=== PATIENT | male | born 1980 | race Caucasian/White ===

== ENCOUNTER 2022-06-12 08:00 | Inpatient (IN) | payer SELFPAY ==
[2022-06-12] MEDS ORDERED: LORazepam 2 MG/ML INJ IV STA ×3 (08:15→10:43)
[2022-06-12] MEDS ORDERED: SODIUM CHLORIDE 0.9% 1,000 ML IV STA (08:15)
--- NOTE | 2022-06-12 08:15 | ED ---
General Adult HPI - General Chief complaint: Altered Mental Status Stated complaint: AMS Time Seen by Provider: 06/12/22 08:02 Source: EMS Mode of arrival: EMS Limitations: altered mental status - History of Present Illness Initial comments: Dictation was produced using [employer] dictation software. please excuse any grammatical, word or spelling errors. Chief Complaint: 42-year-old male brought in to the emergency department for altered mental status History of Present Illness: Is a 42-year-old male history of resident was obtained from EMS. Patient is a poor historian. Apparently patient was found altered in a vehicle in a neighboring city. He was parked at a gas station when bystander noticed use in the vehicle not really responding. Police was called and forced the vehicle open. EMS was called after patient was found to be altered. EMS reports that there were several illicit drugs/substances found in the vehicle. Patient did not admit to using any of these. Patient denies any comorbidities at this time however he is a poor historian. Unable to obtain ROS secondary to mental status PHYSICAL EXAM: General Impression: Alert and oriented x3, not in acute distress, agitated HEENT: Normocephalic atraumatic, extra-ocular movements intact, pupils equal and reactive to light bilaterally, mucous membranes moist, poor dentition Cardiovascular: Heart regular rate and rhythm Chest: Able to complete full sentences, no retractions, no tachypnea Abdomen: abdomen soft, non-tender, non-distended, no organomegaly Musculoskeletal: Pulses present and equal in all extremities, no peripheral edema Motor: no focal deficits noted Neurological: CN II-XII grossly intact, no focal motor or sensory deficits noted Skin: Intact with no visualized rashes ED course: 42-year-old male presents emergency department for sympathomimetic toxicity. Signs upon arrival shows heart rate of 135. Rest vital signs within acceptable limits. Nursing notes and chart review was performed My EKG interpretation: Ventricular rate 125, sinus tachycardia,. 122, QRS 64, QTC 424. No W[place] prolongation, no QTC prolongation, no ST or T-wave changes noted. . Overall, this EKG is unremarkable Laboratory evaluation obtained. CBC shows mild leukocytosis of 14.7. Hypernatremia and suitable 140. Positive gap acidosis. Elevated renal markers with a creatinine of 2.74 and BUN of 32. Osmolar gap is normal. No concerns of toxic alcohol ingestion. Lactic acidosis 7.9. Creatinine is 1242. These are all likely manifestations of sympathomimetic toxicity. Computed tomography scan of brain was obtained. It was independently interpreted by myself. Radiology reviews suggest that there is a focal hyperdensity distribution of the anterior cerebral artery. Patient has renal dysfunction. Risks outweigh the benefits for contrast administration. Radiologist recommends MRA instead. Patient given multiple doses of benzodiazepines. He'll be admitted for further care. Case discussed with Dr. Chandra of [facility] emergency department physician group was willing to accept patients care. Was pt. sent in by a medical professional or institution? @No Did you speak to anyone other than the patient for history? @EMS Did you review nursing and triage notes? @yes, agreed Were old charts reviewed? @None Differential Diagnosis? @ MDM Differential Altered Mental Status: Hypoglycemia, DKA, hypercapnia, ETOH, overdose, CO poisoning, trauma, myxedema coma, HTN encephalopathy, infection, encephalitis, psychosis, intercranial hemorrhage, hepatic encephalopathy, meningitis, CVA this is not meant to be an all-inclusive list EKG interpreted by me (3pts min.)? @Yes, see interpretation above X-rays interpreted by me (1pt min.)? @ [none] CT interpreted by me (1pt min.)? @Yes, see interpretation above U/S interpreted by me (1pt. min.)? @ [none] What testing was considered but not performed? (CT, X-rays, U/S, labs)? Why? @CT with contrast was considered however patient has poor GFR that with the benefits What meds were considered but not given? Why? @Haldol, ketamine was considered for sedation however Ativan better choice Did you discuss the management of the patient with other professionals? @Case discussed with Dr. La of [facility] emergency department physician group Did you reconcile home meds? @ [none] Was smoking cessation discussed for >3mins.? @ [none] Was critical care preformed (if so, how long)? @ [none] Were there social determinants of health that impacted care today? How? (Homelessness, low income, unemployed, alcoholism, drug addiction, transportation, low edu. Level, literacy, decrease access to med. care, snf, rehab)? @Patient disheveled and likely abuses illicit drugs on a regular basis making disposition difficult Was there de-escalation of care discussed even if they declined? (Discuss DNR or withdrawal of care, Hospice)? @Not applicable What co-morbidities impacted this encounter? (DM, HTN, Smoking, COPD, CAD, Cancer, CVA, Hep., AIDS, mental health diagnosis, sleep apnea, morbid obesity)? @Unable to identify morbidities given patient's mental status Was patient admitted / discharged? @Admitted Undiagnosed new problem with uncertain prognosis? @Yes Drug Therapy requiring intensive monitoring for toxicity (Heparin, Nitro, Insulin, Cardizem)? @Yes, Ativan Were any procedures done? @ [none] Diagnosis/symptom? @Sympathomimetic toxicity with associated rhabdomyolysis, acidosis Acute, or Chronic, or Acute on Chronic? @Acute Uncomplicated (without systemic symptoms) or Complicated (systemic symptoms)? @Complicated Side effects of treatment? @ [none] Exacerbation, Progression, or Severe Exacerbation] @ [no] Poses a threat to life or bodily function? @Yes, renal and cardiac threat - Related Data Home Medications Medication Instructions Recorded Confirmed Unable To Assess [Unable to Assess] 06/12/22 06/12/22 Allergies Allergy/AdvReac Type Severity Reaction Status Date / Time Unable to Assess Allergy Verified 06/12/22 08:09 Review of Systems ROS Statement: Those systems with pertinent positive or pertinent negative responses have been documented in the HPI. ROS Other: All systems not noted in ROS Statement are negative. Past Medical History Past Medical History: Unable to Obtain History of Any Multi-Drug Resistant Organisms: Unobtainable Past Surgical History: Unable to Obtain Past Psychological History: Unable to Obtain Smoking Status: Unknown if ever smoked Past Alcohol Use History: Unable to Obtain Past Drug Use History: Unable to Obtain General Exam Limitations: altered mental status Course Vital Signs 06/12/22 06/12/22 08:02 12:16 Temperature 98.2 F Pulse Rate 135 H 108 H Respiratory 22 15 Rate Blood Pressure 129/85 106/78 O2 Sat by Pulse 97 99 Oximetry Medical Decision Making - Lab Data Result diagrams: 06/12/22 08:35 06/12/22 08:35 Lab Results 06/12/22 06/12/22 06/12/22 Range/Units 08:35 08:35 08:35 WBC 14.7 H (3.8-10.6) k/uL RBC 5.04 (4.30-5.90) m/uL Hgb 16.8 (13.0-17.5) gm/dL Hct 48.1 (39.0-53.0) % MCV 95.4 (80.0-100.0) fL MCH 33.3 (25.0-35.0) pg MCHC 34.9 (31.0-37.0) g/dL RDW 12.9 (11.5-15.5) % Plt Count 269 (150-450) k/uL MPV 8.1 Neutrophils % 91 % Lymphocytes % 4 % Monocytes % 5 % Eosinophils % 1 % Basophils % 0 % Neutrophils # 13.3 H (1.3-7.7) k/uL Lymphocytes # 0.6 L (1.0-4.8) k/uL Monocytes # 0.7 (0-1.0) k/uL Eosinophils # 0.1 (0-0.7) k/uL Basophils # 0.0 (0-0.2) k/uL Sodium 148 H (137-145) mmol/L Potassium 4.7 (3.5-5.1) mmol/L Chloride 110 H (98-107) mmol/L Carbon Dioxide 16 L (22-30) mmol/L Anion Gap 22 mmol/L BUN 32 H (9-20) mg/dL Creatinine 2.74 H (0.66-1.25) mg/dL Est GFR (CKD-EPI)AfAm 31 (>60 ml/min/1.73 sqM) Est GFR (CKD-EPI)NonAf 27 (>60 ml/min/1.73 sqM) Glucose 233 H (74-99) mg/dL Osmolality (280-301) mosm/kg Lactic Ac Sepsis Rflx Plasma Lactic Acid Sang 7.9 H* (0.7-2.0) mmol/L Calcium 10.6 H (8.4-10.2) mg/dL Total Bilirubin 0.9 (0.2-1.3) mg/dL AST 60 H (17-59) U/L ALT 42 (4-49) U/L Alkaline Phosphatase 88 (38-126) U/L Creatine Kinase (55-170) U/L Total Protein 8.8 H (6.3-8.2) g/dL Albumin 5.2 H (3.5-5.0) g/dL 06/12/22 06/12/22 Range/Units 08:35 09:16 WBC (3.8-10.6) k/uL RBC (4.30-5.90) m/uL Hgb (13.0-17.5) gm/dL Hct (39.0-53.0) % MCV (80.0-100.0) fL MCH (25.0-35.0) pg MCHC (31.0-37.0) g/dL RDW (11.5-15.5) % Plt Count (150-450) k/uL MPV Neutrophils % % Lymphocytes % % Monocytes % % Eosinophils % % Basophils % % Neutrophils # (1.3-7.7) k/uL Lymphocytes # (1.0-4.8) k/uL Monocytes # (0-1.0) k/uL Eosinophils # (0-0.7) k/uL Basophils # (0-0.2) k/uL Sodium (137-145) mmol/L Potassium (3.5-5.1) mmol/L Chloride (98-107) mmol/L Carbon Dioxide (22-30) mmol/L Anion Gap mmol/L BUN (9-20) mg/dL Creatinine (0.66-1.25) mg/dL Est GFR (CKD-EPI)AfAm (>60 ml/min/1.73 sqM) Est GFR (CKD-EPI)NonAf (>60 ml/min/1.73 sqM) Glucose (74-99) mg/dL Osmolality 326 H* (280-301) mosm/kg Lactic Ac Sepsis Rflx Y Plasma Lactic Acid Sang (0.7-2.0) mmol/L Calcium (8.4-10.2) mg/dL Total Bilirubin (0.2-1.3) mg/dL AST (17-59) U/L ALT (4-49) U/L Alkaline Phosphatase (38-126) U/L Creatine Kinase 1242 H* (55-170) U/L Total Protein (6.3-8.2) g/dL Albumin (3.5-5.0) g/dL Critical Care Time Critical Care Time: Yes Total Critical Care Time: 77 Disposition Clinical Impression: BRIDGET (acute kidney injury), Rhabdomyolysis, Adv eff sympathomimetics Disposition: ADMITTED IP TO THIS [facility] Condition: Serious Referrals: None,Stated [Primary Care Provider] - 1-2 days Decision Time: 12:43
[2022-06-12 08:55] LABS: Basophils % (A) 0 %; Eosinophils # (A) 0.1 k/uL (0-0.7); Eosinophils % (A) 1 %; HCT 48.1 % (39.0-53.0); HGB 16.8 gm/dL (13.0-17.5); Lymphocytes # (A) 0.6 k/uL (1.0-4.8); Lymphocytes % (A) 4 %; MCH 33.3 pg (25.0-35.0); MCHC 34.9 g/dL (31.0-37.0); MCV 95.4 fL (80.0-100.0); Mean Platelet Volume 8.1; Monocytes # (A) 0.7 k/uL (0-1.0); Monocytes % (A) 5 %; Neutrophils # (A) 13.3 k/uL (1.3-7.7); Neutrophils % (A) 91 %; Platelet Count 269 k/uL (150-450); RBC 5.04 m/uL (4.30-5.90); RDW 12.9 % (11.5-15.5); WBC 14.7 k/uL (3.8-10.6)
[2022-06-12 09:06] LABS: Albumin 5.2 g/dL (3.5-5.0); Calcium 10.6 mg/dL (8.4-10.2); Potassium 4.7 mmol/L (3.5-5.1); Total Bilirubin 0.9 mg/dL (0.2-1.3); Total Protein 8.8 g/dL (6.3-8.2)
[2022-06-12 10:57] LABS: Creatine Kinase 1242 U/L (55-170)
--- NOTE | 2022-06-12 11:57 | CT ---
EXAMINATION TYPE: CT brain wo con DATE OF EXAM: 06/12/2022 COMPARISON: None HISTORY: Altered mental status. CT DLP: 1188.4 mGycm. Automated Exposure Control for Dose Reduction was Utilized. TECHNIQUE: CT scan of the head is performed without contrast. FINDINGS: There is no acute intracranial hemorrhage, mass effect, or midline shift identified. The ventricles and sulci are within normal limits in size. The globes are intact and the visualized sin uses are clear. Small focal hyperdensity seen on axial image 27. Recommend CTA nez perce of [place] to as sess tiny hyperdensity at possibility of thromboembolic disease within the right anterior cerebral ar amadeo. IMPRESSION: 1. No acute intracranial hemorrhage. 2. Recommend CTA nez perce of [place] process. Focal hyperdensity distribution of the anterior cerebral a rtery
[2022-06-12] MEDS ORDERED: NALOXONE 0.4 MG/ML 1 ML VIAL IV PRN ×2 (13:32→13:38)
--- NOTE | 2022-06-12 13:38 | P.HPIM ---
History of Present Illness H&P Date: 06/12/22 Chief Complaint: found down 42-year-old male brought in to the emergency department for altered mental status, he was found by a bystander in his car, out of it. Police was called and forced the vehicle open. When EMS arrived he was not making sense of what he was saying. EMS reports that there were several illicit drugs/substances found in the vehicle including meth and possibly fentanyl. According to the ER nurse he was not cooperative with his care in the ER. When I evaluated the patient was very out of it. He was just given some sedation with Ativan by the ER. He is currently sleeping and not able to provide any history. Evaluation in the emergency department revealed tachycardia with heart rate in the 130s, EKG showed sinus tachycardia. Labs showed sodium 148, potassium 4.7, prednisone 10, bicarb 16, BUN 32, creatinine 2.74, glucose 233, white count 14.7 . Osmolality 326. Osmolality gap 6, lactic acid 7.9, Calcium 10.6, Bilirubin 0.9, AST 60, ALT 42. Total CK 1242, head CT showed no acute intracranial abnormality but there was some focal hypodensity in the anterior communicating artery area, recommending CTA... Review of Systems Unable to obtain ROS secondary to mental status Past Medical History Past Medical History: Unable to Obtain History of Any Multi-Drug Resistant Organisms: Unobtainable Past Surgical History: Unable to Obtain Past Psychological History: Unable to Obtain Smoking Status: Unknown if ever smoked Past Alcohol Use History: Unable to Obtain Past Drug Use History: Unable to Obtain Medications and Allergies Home Medications Medication Instructions Recorded Confirmed Type Unable To Assess [Unable to Assess] 06/12/22 06/12/22 History Allergies Allergy/AdvReac Type Severity Reaction Status Date / Time Unable to Assess Allergy Verified 06/12/22 08:09 Physical Exam Vitals: Vital Signs Temp Pulse Resp BP Pulse Ox 06/12/22 12:16 108 H 15 106/78 99 06/12/22 08:02 98.2 F 135 H 22 129/85 97 Intake and Output 06/11/22 06/12/22 06/12/22 22:59 06:59 14:59 Other: Weight 68.039 kg Constitutional: Sedated Eyes:Anicteric sclerae, moist conjunctiva, no lid-lag, PERRLA, ENMT: Oropharynx clear, no erythema, exudates Neck: Supple, FROM, no masses, or JVD, No carotid bruits, No thyromegaly Lungs: Clear to auscultation, Clear to percussion, Normal respiratory effort, no accessory muscle use Cardiovascular: Tachycardic, regular. No murmurs, gallops, or rubs, No peripheral edema Abdominal: Soft, Nontender, no guarding, rebound or rigidity, Normoactive bowel sounds, No hepatomegaly, No splenomegaly, No palpable mass Skin: Normal temperature, tone, texture, turgor, no induration, No subcutaneous nodules, No rash, lesions, No ulcers Extremities: No digital cyanosis, No clubbing, Pedal pulses intact and symmetrical, Radial pulses intact and symmetrical, No calf tenderness Neuro: Sedated, unable to perform Results CBC & Chem 7: 06/12/22 08:35 06/12/22 08:35 Labs: Abnormal Lab Results - Last 24 Hours (Table) 06/12/22 06/12/22 06/12/22 Range/Units 08:35 08:35 08:35 WBC 14.7 H (3.8-10.6) k/uL Neutrophils # 13.3 H (1.3-7.7) k/uL Lymphocytes # 0.6 L (1.0-4.8) k/uL Sodium 148 H (137-145) mmol/L Chloride 110 H (98-107) mmol/L Carbon Dioxide 16 L (22-30) mmol/L BUN 32 H (9-20) mg/dL Creatinine 2.74 H (0.66-1.25) mg/dL Glucose 233 H (74-99) mg/dL Osmolality (280-301) mosm/kg Plasma Lactic Acid Sang 7.9 H* (0.7-2.0) mmol/L Calcium 10.6 H (8.4-10.2) mg/dL AST 60 H (17-59) U/L Creatine Kinase (55-170) U/L Total Protein 8.8 H (6.3-8.2) g/dL Albumin 5.2 H (3.5-5.0) g/dL 06/12/22 06/12/22 Range/Units 08:35 12:00 WBC (3.8-10.6) k/uL Neutrophils # (1.3-7.7) k/uL Lymphocytes # (1.0-4.8) k/uL Sodium (137-145) mmol/L Chloride (98-107) mmol/L Carbon Dioxide (22-30) mmol/L BUN (9-20) mg/dL Creatinine (0.66-1.25) mg/dL Glucose (74-99) mg/dL Osmolality 326 H* (280-301) mosm/kg Plasma Lactic Acid Sang 2.7 H* (0.7-2.0) mmol/L Calcium (8.4-10.2) mg/dL AST (17-59) U/L Creatine Kinase 1242 H* (55-170) U/L Total Protein (6.3-8.2) g/dL Albumin (3.5-5.0) g/dL Assessment and Plan Plan: Acute toxic encephalopathy, likely with amphetamines and possibly fentanyl. Rhabdomyolysis Sinus tachycardia Dehydration Leukocytosis Check blood alcohol level Check urine tox screen IV fluids Admit for neuro checks Telemetry Acute renal failure Metabolic acidosis Lactic acidosis Hypernatremia Likely secondary to dehydration Toxicity with glycols unlikely as he has normal osmolal gap IV fluids Avoid nephrotoxic meds Recheck cr in am Hyperglycemia Check A1c Check blood sugars every 6hrs. [facility] length of stay more than 2 midnights.
[2022-06-12 16:45] LABS: Appearance,Urine Clear (Clear); Bilirubin,Urine Negative (Negative); Blood,Urine Large (Negative); Color,Urine Yellow; Glucose,Urine (UA) Negative (Negative); Hyaline Casts,Urine 5 /lpf (0-2); Ketones,Urine Trace (Negative); Leukocyte Esterase,Urine Trace (Negative); Mucus,Urine Rare /hpf; Nitrite,Urine Negative (Negative); Protein,Urine 1+ (Negative); RBC,Urine 1 /hpf (0-5); Specific Gravity,Urine 1.028 (1.001-1.035); Squamous Epithelial Cell,Urine <1 /hpf (0-4); Urobilinogen,Urine <2.0 mg/dL (<2.0); WBC,Urine 5 /hpf (0-5)
[2022-06-12] MEDS: SODIUM CHLORIDE 0.9% 1,000 ML IV SCH ×2 (17:01→23:27)
[2022-06-12 17:19] LABS: Urn Cannabinoid Scrn Detected (NotDetected)
[2022-06-12 17:20] LABS: Amphetamine Screen,Urine Detected (NotDetected); Barbiturate Screen,Urine Not Detected (NotDetected); Benzodiazepines Screen,Urine Detected (NotDetected); Cocaine Screen,Urine Not Detected (NotDetected); Methadone Screen, Urine Not Detected (NotDetected); Opiate Screen,Urine Not Detected (NotDetected); Oxycodone Screen, Urine Not Detected (NotDetected); Phencyclidine Screen,Urine Not Detected (NotDetected); Tricyclic Antidepressant,Urine Not Detected (NotDetected)
[2022-06-12] MEDS ORDERED: LORazepam 2 MG/ML INJ IV ONE (21:44)
[2022-06-13 08:04] LABS: Basophils % (A) 0 %; Eosinophils % (A) 0 %; HCT 40.7 % (39.0-53.0); Lymphocytes % (A) 11 %; MCH 33.7 pg (25.0-35.0); MCHC 34.3 g/dL (31.0-37.0); MCV 98.3 fL (80.0-100.0); Mean Platelet Volume 8.4; Monocytes # (A) 0.5 k/uL (0-1.0); Monocytes % (A) 5 %; Neutrophils # (A) 7.4 k/uL (1.3-7.7); Neutrophils % (A) 82 %; Platelet Count 175 k/uL (150-450); RBC 4.14 m/uL (4.30-5.90); RDW 12.8 % (11.5-15.5)
[2022-06-13] MEDS: SODIUM CHLORIDE 0.9% 1,000 ML IV SCH (08:20)
[2022-06-13 08:33] LABS: Albumin 3.5 g/dL (3.5-5.0); Calcium 8.1 mg/dL (8.4-10.2); Potassium 4.6 mmol/L (3.5-5.1); Total Bilirubin 0.3 mg/dL (0.2-1.3); Total Protein 6.4 g/dL (6.3-8.2)
--- NOTE | 2022-06-13 15:24 | P.PN ---
Subjective Progress Note Date: 06/13/22 Patient seen and examined at bedside. Patient's chest pain shortness of breath nausea vomiting fevers or chills. Patient feels better since coming to the hospital. Objective - Vital Signs Vital signs: Vital Signs Temp 97 F L 06/13/22 08:00 Pulse 78 06/13/22 12:00 Resp 16 06/13/22 12:00 BP 100/60 06/13/22 12:00 Pulse Ox 98 06/13/22 12:00 FiO2 Intake & Output 06/12/22 06/13/22 06/13/22 18:59 06:59 18:59 Intake Total 520 Output Total 425 Balance -425 520 Weight 68.039 kg 68.039 kg Intake: Intake, IV Titration 520 Amount Sodium Chloride 0.9% 1, 520 000 ml @ 130 mls/hr IV . Q7H42M [facility] Rx#:[id number] Output: Urine 425 Other: Voiding Method Urinal Urinal # Voids 1 - Exam General: [non toxic], [no distress], [appears at stated age] Derm: [warm], [dry] Head: [atraumatic], [normocephalic], [symmetric] Eyes: [EOMI], [no lid lag], [anicteric sclera] Mouth: [no lip lesion], [mucus membranes moist] Cardiovascular: [S1S2 reg], [no murmur], [positive posterior tibial pulse bilateral], Lungs: [CTA bilateral], [no rhonchi, no rales] , [no accessory muscle use] Abdominal: [soft], [ nontender to palpation], [no guarding], [no appreciable organomegaly] Ext: [no gross muscle atrophy], [no edema], [no contractures] Neuro: [ CN II-XI grossly intact], [no focal neuro deficits] Psych: [Alert], [oriented], [appropriate affect] - Labs CBC & Chem 7: 06/13/22 07:16 06/13/22 07:16 Labs: Abnormal Lab Results - Last 24 Hours (Table) 06/12/22 06/12/22 06/13/22 Range/Units 16:35 16:35 07:16 RBC 4.14 L (4.30-5.90) m/uL Sodium (137-145) mmol/L Chloride (98-107) mmol/L BUN (9-20) mg/dL Calcium (8.4-10.2) mg/dL AST (17-59) U/L ALT (4-49) U/L CK-MB (CK-2) (0.0-2.4) ng/mL Urine Protein 1+ H (Negative) Urine Ketones Trace H (Negative) Urine Blood Large H (Negative) Ur Leukocyte Esterase Trace H (Negative) Hyaline Casts 5 H (0-2) /lpf Urine Mucus Rare H (None) /hpf Ur Amphetamines Screen Detected H (NotDetected) U Methamphetamines Scrn Detected H (NotDetected) U Benzodiazepines Scrn Detected H (NotDetected) U Marijuana (THC) Screen Detected H (NotDetected) 06/13/22 06/13/22 Range/Units 07:16 07:16 RBC (4.30-5.90) m/uL Sodium 146 H (137-145) mmol/L Chloride 115 H (98-107) mmol/L BUN 27 H (9-20) mg/dL Calcium 8.1 L (8.4-10.2) mg/dL AST 465 H (17-59) U/L ALT 84 H (4-49) U/L CK-MB (CK-2) 122.0 H (0.0-2.4) ng/mL Urine Protein (Negative) Urine Ketones (Negative) Urine Blood (Negative) Ur Leukocyte Esterase (Negative) Hyaline Casts (0-2) /lpf Urine Mucus (None) /hpf Ur Amphetamines Screen (NotDetected) U Methamphetamines Scrn (NotDetected) U Benzodiazepines Scrn (NotDetected) U Marijuana (THC) Screen (NotDetected) Assessment and Plan Assessment: Acute toxic encephalopathy, likely with amphetamines Improving Rhabdomyolysis improving Sinus tachycardia resolved Dehydration improving Leukocytosis resolved IV fluids Telemetry Acute renal failure resolved Metabolic acidosis Hypernatremia Likely secondary to dehydration IV fluids Avoid nephrotoxic meds Recheck cr in am Hyperglycemia resolved Abnormal UA Urine culture pending Disposition discharge planning in the morning Time with Patient: Greater than 30
[2022-06-14 09:27] LABS: Basophils % (A) 0 %; Eosinophils % (A) 1 %; HCT 36.8 % (39.0-53.0); HGB 12.8 gm/dL (13.0-17.5); Lymphocytes # (A) 1.3 k/uL (1.0-4.8); Lymphocytes % (A) 20 %; MCH 32.9 pg (25.0-35.0); MCHC 34.7 g/dL (31.0-37.0); MCV 94.7 fL (80.0-100.0); Mean Platelet Volume 8.6; Monocytes # (A) 0.3 k/uL (0-1.0); Monocytes % (A) 5 %; Neutrophils # (A) 4.5 k/uL (1.3-7.7); Neutrophils % (A) 73 %; Platelet Count 162 k/uL (150-450); RBC 3.89 m/uL (4.30-5.90); RDW 12.4 % (11.5-15.5); WBC 6.2 k/uL (3.8-10.6)
[2022-06-14 09:45] LABS: ALT 79 U/L (4-49); AST 339 U/L (17-59); African American GFR (CKD) >90 (>60 ml/min/1.73 sqM); Alkaline Phosphatase 51 U/L (38-126); Anion Gap 4 mmol/L; Blood Urea Nitrogen 17 mg/dL (9-20); Calcium 7.9 mg/dL (8.4-10.2); Carbon Dioxide 24 mmol/L (22-30); Chloride 113 mmol/L (98-107); Glucose 82 mg/dL (74-99); Non-African American GFR(CKD) >90 (>60 ml/min/1.73 sqM); Potassium 4.1 mmol/L (3.5-5.1); Sodium 141 mmol/L (137-145); Total Bilirubin 0.2 mg/dL (0.2-1.3); Total Protein 5.6 g/dL (6.3-8.2)
[2022-06-14 10:30] LABS: Creatine Kinase 9217 U/L (55-170)
[2022-06-14] MEDS: SODIUM CHLORIDE 0.9% 1,000 ML IV SCH ×5 (12:12→23:01)
--- NOTE | 2022-06-14 15:43 | P.PN ---
Subjective Progress Note Date: 06/14/22 Patient seen and examined at bedside. Patient was playing in bed comfortably patient denied any chest pain shortness of breath nausea vomiting fevers or chills patient was not in any type of pain. However, a.m. labs revealed increasing CK levels. Patient was have to stay until levels improve. Objective - Vital Signs Vital signs: Vital Signs Temp 98.4 F 06/14/22 08:00 Pulse 68 06/14/22 12:00 Resp 16 06/14/22 12:00 BP 110/75 06/14/22 12:00 Pulse Ox 98 06/14/22 12:00 FiO2 Intake & Output 06/13/22 06/14/22 06/14/22 18:59 06:59 18:59 Intake Total 1120 360 Output Total 500 450 475 Balance 620 -450 -115 Intake: Intake, IV Titration 1120 Amount Sodium Chloride 0.9% 1, 1120 000 ml @ 130 mls/hr IV . Q7H42M [facility] Rx#:[id number] Oral 360 Output: Urine 500 450 475 Other: Voiding Method Urinal Urinal Urinal # Voids 1 - Exam General: [non toxic], [no distress], [appears at stated age] Derm: [warm], [dry] Head: [atraumatic], [normocephalic], [symmetric] Eyes: [EOMI], [no lid lag], [anicteric sclera] Mouth: [no lip lesion], [mucus membranes moist] Cardiovascular: [S1S2 reg], [no murmur], [positive posterior tibial pulse bilateral], Lungs: [CTA bilateral], [no rhonchi, no rales] , [no accessory muscle use] Abdominal: [soft], [ nontender to palpation], [no guarding], [no appreciable organomegaly] Ext: [no gross muscle atrophy], [no edema], [no contractures] Neuro: [ CN II-XI grossly intact], [no focal neuro deficits] Psych: [Alert], [oriented], [appropriate affect]. - Labs CBC & Chem 7: 06/14/22 08:53 06/14/22 08:53 Labs: Abnormal Lab Results - Last 24 Hours (Table) 06/14/22 06/14/22 06/14/22 Range/Units 08:53 08:53 11:58 RBC 3.89 L (4.30-5.90) m/uL Hgb 12.8 L (13.0-17.5) gm/dL Hct 36.8 L (39.0-53.0) % Chloride 113 H (98-107) mmol/L Calcium 7.9 L (8.4-10.2) mg/dL AST 339 H (17-59) U/L ALT 79 H (4-49) U/L Creatine Kinase 9217 H* 7489 H* (55-170) U/L Total Protein 5.6 L (6.3-8.2) g/dL Albumin 3.0 L (3.5-5.0) g/dL Microbiology - Last 24 Hours (Table) 06/13/22 16:16 Urine Culture - Preliminary Urine,Voided Assessment and Plan Assessment: Acute toxic encephalopathy, likely with amphetamines Improving Rhabdomyolysis worsening. A.m. CK level was 9217. Stat repeat CK level was 7489 Continue IV hydration Sinus tachycardia resolved Leukocytosis resolved IV fluids Telemetry Acute renal failure resolved Metabolic acidosis Hypernatremia resolved IV fluids Avoid nephrotoxic meds Recheck cr in am Hyperglycemia resolved Abnormal UA Urine culture pending Disposition discharge planning once CK levels improve
[2022-06-14 16:27] LABS: Basophils % (A) 1 %; Eosinophils # (A) 0.1 k/uL (0-0.7); Eosinophils % (A) 1 %; HCT 38.4 % (39.0-53.0); HGB 13.6 gm/dL (13.0-17.5); Lymphocytes # (A) 1.3 k/uL (1.0-4.8); Lymphocytes % (A) 20 %; MCH 33.7 pg (25.0-35.0); MCHC 35.5 g/dL (31.0-37.0); MCV 94.9 fL (80.0-100.0); Mean Platelet Volume 8.6; Monocytes # (A) 0.3 k/uL (0-1.0); Monocytes % (A) 5 %; Neutrophils # (A) 4.5 k/uL (1.3-7.7); Neutrophils % (A) 72 %; Platelet Count 155 k/uL (150-450); RBC 4.05 m/uL (4.30-5.90); RDW 12.4 % (11.5-15.5); WBC 6.3 k/uL (3.8-10.6)
[2022-06-15] MEDS: SODIUM CHLORIDE 0.9% 1,000 ML IV SCH ×5 (05:20→23:00)
[2022-06-15 07:05] LABS: ALT 74 U/L (4-49); AST 235 U/L (17-59); African American GFR (CKD) >90 (>60 ml/min/1.73 sqM); Albumin 2.9 g/dL (3.5-5.0); Albumin/Globulin Ratio 1.1; Alkaline Phosphatase 56 U/L (38-126); Anion Gap 5 mmol/L; Blood Urea Nitrogen 11 mg/dL (9-20); Carbon Dioxide 22 mmol/L (22-30); Chloride 113 mmol/L (98-107); Globulin 2.6 g/dL; Glucose 86 mg/dL (74-99); Non-African American GFR(CKD) >90 (>60 ml/min/1.73 sqM); Potassium 4.1 mmol/L (3.5-5.1); Sodium 140 mmol/L (137-145); Total Bilirubin 0.4 mg/dL (0.2-1.3); Total Protein 5.5 g/dL (6.3-8.2)
[2022-06-15 07:50] LABS: Creatine Kinase 5183 U/L (55-170)
--- NOTE | 2022-06-15 15:59 | P.PN ---
Subjective Progress Note Date: 06/15/22 Patient seen and examined at bedside. Patient resting in bed comfortably has no complaints. Patient denies chest pain shortness breath nausea vomiting fevers and chills. A.m. labs show improving creatinine kinase levels. Objective - Vital Signs Vital signs: Vital Signs Temp 98.7 F 06/15/22 14:39 Pulse 65 06/15/22 14:39 Resp 16 06/15/22 14:39 BP 103/64 06/15/22 14:39 Pulse Ox 98 06/15/22 14:39 FiO2 Intake & Output 06/14/22 06/15/22 06/15/22 18:59 06:59 18:59 Intake Total 540 2460 120 Output Total 1000 1325 600 Balance -460 1135 -480 Intake: Intake, IV Titration 2100 Amount Sodium Chloride 0.9% 1, 2100 000 ml @ 175 mls/hr IV . Q5H43M [facility] Rx#:[id number] Oral 540 360 120 Output: Urine 1000 1325 600 Other: Voiding Method Urinal Urinal - Exam General: [non toxic], [no distress], [appears at stated age] Derm: [warm], [dry] Head: [atraumatic], [normocephalic], [symmetric] Eyes: [EOMI], [no lid lag], [anicteric sclera] Mouth: [no lip lesion], [mucus membranes moist] Cardiovascular: [S1S2 reg], [no murmur], [positive posterior tibial pulse bilateral], Lungs: [CTA bilateral], [no rhonchi, no rales] , [no accessory muscle use] Abdominal: [soft], [ nontender to palpation], [no guarding], [no appreciable organomegaly] Ext: [no gross muscle atrophy], [no edema], [no contractures] Neuro: [ CN II-XI grossly intact], [no focal neuro deficits] Psych: [Alert], [oriented], [appropriate affect] - Labs CBC & Chem 7: 06/14/22 16:06 06/15/22 06:08 Labs: Abnormal Lab Results - Last 24 Hours (Table) 06/14/22 06/15/22 Range/Units 16:06 06:08 RBC 4.05 L (4.30-5.90) m/uL Hct 38.4 L (39.0-53.0) % Chloride 113 H (98-107) mmol/L Calcium 8.0 L (8.4-10.2) mg/dL AST 235 H (17-59) U/L ALT 74 H (4-49) U/L Creatine Kinase 5183 H* (55-170) U/L Total Protein 5.5 L (6.3-8.2) g/dL Albumin 2.9 L (3.5-5.0) g/dL Microbiology - Last 24 Hours (Table) 06/13/22 16:16 Urine Culture - Final Urine,Voided Assessment and Plan Assessment: Acute toxic encephalopathy, likely with amphetamines Improving Rhabdomyolysis improving creatinine kinase today was 5183 yesterday was 7489 Continue IV hydration Sinus tachycardia resolved Leukocytosis resolved IV fluids Telemetry Acute renal failure resolved Metabolic acidosis Hypernatremia resolved IV fluids Avoid nephrotoxic meds Recheck cr in am Hyperglycemia resolved Abnormal UA Urine culture pending Disposition discharge planning in the AM
[2022-06-16 02:29] VITALS: RESP 17
[2022-06-16 06:12] LABS: Basophils % (A) 0 %; Eosinophils # (A) 0.1 k/uL (0-0.7); Eosinophils % (A) 2 %; HCT 38.3 % (39.0-53.0); HGB 13.8 gm/dL (13.0-17.5); Lymphocytes % (A) 19 %; MCH 33.3 pg (25.0-35.0); MCHC 36.2 g/dL (31.0-37.0); MCV 92.1 fL (80.0-100.0); Mean Platelet Volume 8.9; Monocytes # (A) 0.3 k/uL (0-1.0); Monocytes % (A) 5 %; Neutrophils % (A) 72 %; Platelet Count 173 k/uL (150-450); RBC 4.16 m/uL (4.30-5.90); RDW 12.9 % (11.5-15.5); WBC 5.5 k/uL (3.8-10.6)
[2022-06-16 06:35] LABS: ALT 67 U/L (4-49); AST 162 U/L (17-59); African American GFR (CKD) >90 (>60 ml/min/1.73 sqM); Albumin/Globulin Ratio 1.2; Alkaline Phosphatase 55 U/L (38-126); Anion Gap 3 mmol/L; Blood Urea Nitrogen 11 mg/dL (9-20); Calcium 8.1 mg/dL (8.4-10.2); Carbon Dioxide 27 mmol/L (22-30); Chloride 111 mmol/L (98-107); Globulin 2.5 g/dL; Glucose 101 mg/dL (74-99); Non-African American GFR(CKD) >90 (>60 ml/min/1.73 sqM); Potassium 3.8 mmol/L (3.5-5.1); Sodium 141 mmol/L (137-145); Total Bilirubin 0.3 mg/dL (0.2-1.3); Total Protein 5.5 g/dL (6.3-8.2)
[2022-06-16 07:09] LABS: Creatine Kinase 2611 U/L (55-170)
[2022-06-16 07:12] VITALS: BP 96/61; PULSE 70; TEMP 98.5
--- NOTE | 2022-06-16 13:30 | P.DS ---
Providers Date of admission: 06/12/22 13:33 Expected date of discharge: 06/16/22 Attending physician: Awais La MD Primary care physician: Stated None Hospital Course: Admitting diagnoses: Acute toxic encephalopathy Unintentional overdose on amphetamines Rhabdomyolysis Discharge diagnoses: Acute toxic encephalopathy resolved Unintentional overdose on amphetamines Rhabdomyolysis improved 42-year-old male brought in to the emergency department for altered mental status, he was found by a bystander in his car, out of it. Police was called and forced the vehicle open. When EMS arrived he was not making sense of what he was saying. EMS reports that there were several illicit drugs/substances found in the vehicle including meth and possibly fentanyl. According to the ER nurse he was not cooperative with his care in the ER. When I evaluated the patient was very out of it. He was just given some sedation with Ativan by the ER. He is currently sleeping and not able to provide any history. Evaluation in the emergency department revealed tachycardia with heart rate in the 130s, EKG showed sinus tachycardia. Labs showed sodium 148, potassium 4.7, prednisone 10, bicarb 16, BUN 32, creatinine 2.74, glucose 233, white count 14.7. Osmolality 326. Osmolality gap 6, lactic acid 7.9, Calcium 10.6, Bilirubin 0.9, AST 60, ALT 42. Total CK 1242, head CT showed no acute intracranial abnormality but there was some focal hypodensity in the anterior communicating artery area, recommending CTA. Physical exam: General: [non toxic], [no distress], [appears at stated age] Derm: [warm], [dry] Head: [atraumatic], [normocephalic], [symmetric] Eyes: [EOMI], [no lid lag], [anicteric sclera] Mouth: [no lip lesion], [mucus membranes moist] Cardiovascular: [S1S2 reg], [no murmur], [positive posterior tibial pulse bilateral], Lungs: [CTA bilateral], [no rhonchi, no rales] , [no accessory muscle use] Abdominal: [soft], [ nontender to palpation], [no guarding], [no appreciable organomegaly] Ext: [no gross muscle atrophy], [no edema], [no contractures] Neuro: [ CN II-XI grossly intact], [no focal neuro deficits] Psych: [Alert], [oriented], [appropriate affect] Assessment and plan: Acute toxic encephalopathy, likely with amphetamines Improving Rhabdomyolysis improving Continue IV hydration Sinus tachycardia resolved Leukocytosis resolved IV fluids Telemetry Acute renal failure resolved Metabolic acidosis Hypernatremia resolved IV fluids Hyperglycemia resolved Abnormal UA Urine culture pending Disposition: Home Activity: Activity as tolerated Diet: Regular Condition: Fair Patient Condition at Discharge: Stable Plan - Discharge Summary Discharge Rx Participant: Yes New Discharge Prescriptions: No Action No Known Home Medications Discharge Medication List No Known Home Medications 06/12/22 [History] Follow up Appointment(s)/Referral(s): None,Stated [Primary Care Provider] - 1-2 days Activity/Diet/Wound Care/Special Instructions: Recheck creatine kinase levels in one week Discharge Disposition: HOME SELF-CARE
== END 2022-06-16 14:49 | disposition home or self-care (01) | DRG 917 ==
LOC: EC 08:00 → 3SCARD 13:33 → 4SSUR 06-14 19:39
PROVIDERS: ADMIT Internal Medicine; ATTEND Internal Medicine
DX: T43.621A Poisoning by amphetamines, accidental (unintentional), initial encounter (principal); G92.9 Unspecified toxic encephalopathy; E87.0 Hyperosmolality and hypernatremia; M62.82 Rhabdomyolysis; N17.9 Acute kidney failure, unspecified; E87.20 Acidosis, unspecified; I10 Essential (primary) hypertension; E86.0 Dehydration; F13.10 Sedative, hypnotic or anxiolytic abuse, uncomplicated; F12.10 Cannabis abuse, uncomplicated; R73.9 Hyperglycemia, unspecified; R00.0 Tachycardia, unspecified; F15.10 Other stimulant abuse, uncomplicated
CPT/HCPCS: 36415; 70450; 80053; 80306; 80320; 81001; 82550; 82553; 83036; 83605; 83735; 83930; 85025; 87086; 93005; 96361; 96374; 96376; 99291; 99292